=== PATIENT | male | born 1980 | race Caucasian/White ===

== ENCOUNTER 2017-02-13 09:03 | Emergency (ER) | payer BC ==
[2017-02-13 09:19] VITALS: BP 132/92
[2017-02-13] MEDS ORDERED: Ibuprofen TAB* 600 MG PO ONE (09:24)
[2017-02-13] MEDS ORDERED: Tetracaine 0.5% OPTH.SOL 4 ML* 1 DROP BTL RIGHT EYE ONE ×2 (09:25→10:01)
[2017-02-13] MEDS ORDERED: Fluorescein Sodium TOPICAL* 1 MG TEST ONE (09:33)
[2017-02-13] MEDS ORDERED: BSS OPTH.SOL* BTL ONE (09:34)
--- NOTE | 2017-02-13 10:28 | UC ---
Eye Complaint HPI - HPI Summary HPI Summary: poked eye with a piece of cardboard this morning - History of Current Complaint Chief Complaint: UCEye Stated Complaint: RIGHT EYE COMPLAINT Time Seen by Provider: 02/13/17 10:18 Hx Obtained From: Patient Hx From Patient Unobtainable Due To: Other Onset/Duration: Sudden Onset, Lasting Hours - 3, Still Present Timing: Constant Severity Initially: Severe Severity Currently: Mild Pain Intensity: 8 Pain Scale Used: 0-10 Numeric Location of Injury: Conjunctiva Character: Sharp Aggravating Factor(s): Light Alleviating Factor(s): Darkness Associated Signs And Symptoms: Positive: Drainage (Clear), Vision Impairment Right - blurry Related History: Trauma - cardboard poked in eye - Allergies/Home Medications Allergies/Adverse Reactions: Allergies Allergy/AdvReac Type Severity Reaction Status Date / Time No Known Allergies Allergy Verified 02/13/17 09:14 Home Medications: Home Medications Calcium Carbonate-Cholecalcife [Calcium 600+D 600-800 mg-Unit] 1 tab PO DAILY [History Confirmed 02/13/17] Cholecalciferol TAB* [Vitamin D TAB*] 2,000 units PO DAILY 02/13/17 [History Confirmed 02/13/17] predniSONE TAB* [Deltasone TAB*] 20 mg PO DAILY 02/13/17 [History Confirmed ] PMH/Surg Hx/FS Hx/Imm Hx Previously Healthy: Yes - Surgical History Surgical History: None - Family History Known Family History: Positive: None Family History: no reported cardiovascular issues in family lineage - Social History Occupation: Employed Full-time Lives: With Family Alcohol Use: Weekly Substance Use Type: None Smoking Status (MU): Never Smoked Tobacco - Immunization History Most Recent Tetanus Shot: ~2012 Tdap Review of Systems Constitutional: Negative Skin: Negative Eyes: Blurred Vision - OD, Drainage - clearOD, Eye Redness - OD ENT: Negative Respiratory: Negative Cardiovascular: Negative Gastrointestinal: Negative Genitourinary: Negative Motor: Negative Neurovascular: Negative Musculoskeletal: Negative Neurological: Negative Psychological: Negative All Other Systems Reviewed And Are Negative: Yes Physical Exam Triage Information Reviewed: Yes Appearance: Well-Appearing, No Pain Distress, Well-Nourished Vital Signs: Initial Vital Signs Temp 98.7 F 02/13/17 09:11 Pulse 90 05/19/17 09:11 Resp 16 02/13/17 09:11 BP 132/92 02/13/17 09:11 Pulse Ox 100 02/13/17 09:11 Vital Signs Reviewed: Yes Eye Exam: Normal Eyes: Positive: Conjunctiva Inflamed, Discharge - clear od ENT Exam: Normal ENT: Positive: Normal ENT inspection, Hearing grossly normal, Pharynx normal, TMs normal. Negative: Nasal congestion, Nasal drainage, Tonsillar swelling, Tonsillar exudate, Trismus, Muffled/hoarse voice Dental Exam: Normal Neck exam: Normal Neck: Positive: Supple, Nontender Respiratory Exam: Normal Respiratory: Positive: Chest non-tender, No respiratory distress, No accessory muscle use Cardiovascular Exam: Normal Cardiovascular: Positive: RRR, No Murmur, Pulses Normal, Brisk Capillary Refill Musculoskeletal Exam: Normal Musculoskeletal: Positive: Strength Intact, ROM Intact, No Edema, Other: - chronic musculaR-DISORDER Neurological Exam: Normal Neurological: Positive: Alert, Muscle Tone Normal Psychological Exam: Normal Skin Exam: Normal Procedures - Eye Procedure Alcaine Drops Administered: Yes - TETRACAINE DROPS WITH EXCELLENT PAIN RELIEF Re-Evaluation - Re-Evaluation First Eval Change: Improved - PATIENT TOLERATED EYE STAIN WEILL- APPROXIMATED SIZE OF ABRASION IS 1/3 OF CORNEA Eye Complaint Course/Dx - Course Course Of Treatment: DISCUSSED CASE WITH DR. GONZALES--PT IS GOING TO OFFICE FOR EVALUTION FOR USE BANDAGE CONTACT LENS, PAIN CONTROL, TETNUS UP TO DATE - Differential Dx/Diagnosis Differential Diagnosis/HQI/PQRI: Corneal Abrasion, Periorbital Cellulitis, Orbital Cellulitis Provider Diagnoses: OD Corneal Abrasion Discharge - Discharge Plan Condition: Stable Disposition: HOME Prescriptions: oxyCODONE/Acetamin 5/325 MG* [Percocet 5/325 TAB*] 1 tab PO Q6H PRN #8 tab MDD 4 PRN Reason: pain Patient Education Materials: Oxycodone/Acetaminophen (By mouth), Corneal Abrasion (ED) Referrals: Giovanni Gonzales OD [Doctor of Osteopathy] - 02/13/17 10:45 am Chana Ferguson MD [Primary Care Provider] -
== END 2017-02-13 10:41 | disposition home or self-care (01) ==
LOC: UCCORT 09:03
DX: S05.01XA Injury of conjunctiva and corneal abrasion without foreign body, right eye, initial encounter (principal); W22.8XXA Striking against or struck by other objects, initial encounter; Y93.9 Activity, unspecified; Y92.9 Unspecified place or not applicable
CPT/HCPCS: 99203; A9270-GY; G0463